=== PATIENT | male | born 1975 | race Two or more races ===

== ENCOUNTER 2016-09-10 12:38 | Emergency (ER) | payer SELFPAY | END 2016-09-10 15:10 | disposition home or self-care (01) | LOC: D.ER 12:38 | DX: S61.411A Laceration without foreign body of right hand, initial encounter (principal); W26.9XXA Contact with unspecified sharp object(s), initial encounter; Y93.89 Activity, other specified; Y92.019 Unspecified place in single-family (private) house as the place of occurrence of the external cause ==